=== PATIENT | female | born 1995 | race Caucasian/White ===

== ENCOUNTER 2016-11-27 03:20 | Emergency (ER) | payer OTHER ==
[~2016-11-27] VITALS: Ht 160 cm; Wt 97.5 kg
[2016-11-27] MEDS ORDERED: LIDOCAINE 1% INJ 20 ML (XYLOCAINE) VIAL INJ STA (03:39)
[2016-11-27] MEDS ORDERED: PARO30TA3 PO (03:42)
[2016-11-27] MEDS ORDERED: CYCL10TA9 PO (03:42)
[2016-11-27] MEDS ORDERED: BIRTH CONTROL PO (03:42)
[2016-11-27] MEDS ORDERED: OMEP20TA33 PO (03:42)
[2016-11-27] MEDS ORDERED: ALPR0.25 PO (03:42)
--- NOTE | 2016-11-27 03:46 | ED Fall/Injury ---
General Chief Complaint: Laceration Stated Complaint: RT HAND LAC,LEFT FOREARM LAC Source: patient, family Exam Limitations: intoxication History of Present Illness Time seen by provider: 03:26 Initial Comments Here with her and reports that she has lacerations to her right hand and left forearm as well as multiple abrasions and bruises to the arms and abrasions to the face after following up her steps going home after being at the bar. Apparently she was at the bar with her who is working there. He took her back to the house and dropped her off. She was apparently walking up her steps and fell. dropped her off at about 130 and went back to the bar to finish work. He came home about 230 and found her with blood on her arms and face. He is unsure what happened. She reported to him that she fell off the steps. He noted the laceration and brought her here. Patient apparently had a fair amount of blood on her and wanted to shower first. She did shower and then they came here to the ER. She reports that her tetanus is up-to-date. She denies any one trying to hurt her and states this was simply a fall. Occurred: this morning Severity: moderate Injuries/Pain Location: face, upper extremity Context: unknown Loss of Consciousness: no loss of consciousness Associated Symptoms (Fall): No Abdominal Pain, No Headache, No Nausea/Vomiting , No Neck Pain, No Trouble Walking Allergies and Home Medications Allergies Coded Allergies: amoxicillin (Verified Allergy, Unknown, NAUSEA, 11/27/16) Home Medications Unknown Dose PO UD (Reported) Alprazolam 0.25 Mg Tablet Unknown Dose PO UD (Reported) Cyclobenzaprine HCl 10 Mg Tablet #21 1 TAB PO UD (Reported) Omeprazole Magnesium 20 Mg Tablet.dr 20 MG PO UD (Reported) Paroxetine HCl 30 Mg Tablet #30 1 TAB PO UD (Reported) Constitutional: see HPINo chills, No fever Eyes: No Symptoms Reported Ears, Nose, Mouth, Throat: no symptoms reporteddenies mouth pain, denies loose teeth Respiratory: no symptoms reported Cardiovascular: no symptoms reported Gastrointestinal: no symptoms reportedNo nausea, No vomiting Genitourinary: no symptoms reported Musculoskeletal: no symptoms reported Skin: see HPI change in color lesions Psychiatric/Neurological: No Symptoms Reported All Other Systems Reviewed Negative Unless Noted: Yes Past Mwvztkz-Gvjktd-Zgjmqk Hx Patient Social History Alcohol Use: Occasionally Uses Recreational Drug Use: No Smoking Status: Never a Smoker Recent Foreign Travel: No Contact w/Someone Who Travel: No Surgeries HX Surgeries: No Respiratory Hx Respiratory Disorders: No Cardiovascular Hx Cardiac Disorders: No Neurological Hx Neurological Disorders: No Genitourinary Hx Genitourinary Disorders: No Gastrointestinal Hx Gastrointestinal Disorders: Yes Gastrointestinal Disorders: Gastroesophageal Reflux Musculoskeletal Hx Musculoskeletal Disorders: No Psychosocial Hx Psychiatric Problems: Yes Behavioral Health Disorders: Anxiety Reviewed Nursing Assessment Reviewed/Agree w Nursing PMH: Yes Family Medical History Significant Family History: No Pertinent Family Hx Physical Exam Vital Signs Vital Sign - Last 12Hours 11/27/16 03:42 Temp 97.2 Pulse 125 Resp 18 B/P 119/87 Pulse Ox 98 O2 Delivery Room Air Capillary Refill : General Appearance: WD/WN no apparent distress HEENT: PERRL/EOMI pharynx normal Neck: full range of motion supple Cardiovascular: regular rate, rhythm no murmur Respiratory: lungs clear normal breath sounds Gastrointestinal: non tender soft Back: normal inspection no CVA tenderness no vertebral tenderness Extremities: other (multiple abrasions to both forearms and hands. 4 cm laceration to the top of the right hand and 2 cm laceration to the mid left forearm. There is bruising to the mid forearms on both arms as well as to the hands. There are other scattered abrasions on the hands.) Neurologic/Psychiatric: alert oriented x 3 Skin: warm/dry ecchymosis other (abrasion to upper and lower lip midline as well as to the bridge of the nose.) [place] Coma Score Best Eye Response: (4) Open Spontaneously Best Verbal Response: (5) Oriented Best Motor Response: (6) Obeys Commands Laceration Repair #1: Wound Location: Upper Extremities Other Wound Location Right hand Wound Length (cm): 4 Wound's Depth, Shape: superficial Wound Explored: contaminated Irrigated w/ Saline (ccs): 125 Betadine Prep?: Yes Anesthesia: 1% Lidocaine Volume Anesthetic (ccs): 5 Wound Debrided: minimal Suture: Prolene Suture Size: 4-0 Number of Sutures: 6 Layer Closure?: 1 Number Deep Layer Sutures: 0 Progress Wound cleaning and copious water and soap. Anesthetized and closed. Tolerated procedure well. No complications. Covered with antibiotic ointment and a dressing Laceration Repair #2: Wound Location: Upper Extremities Other Wound Location Left forearm to lacerations and close proximity 2 cm total Wound Length (cm): 2 Wound's Depth, Shape: superficial Wound Explored: contaminated Irrigated w/ Saline (ccs): 125 Betadine Prep?: Yes Anesthesia: 1% Lidocaine Wound Debrided: minimal Suture: Prolene Suture Size: 4-0 Number of Sutures: 4 Layer Closure?: 1 Number Deep Layer Sutures: 0 Progress Wound cleaning and copious water and soap. Anesthetized and closed. Tolerated procedure well. No complications. Covered with antibiotic ointment and a dressing Progress/Results/Core Measures Results/Orders My Orders Orders-ANTHONY DHALIWAL MD Lidocaine 1% Injection (Xylocaine 1% Inj (11/27/16 03:39) Hand, Right, 3 Views (11/27/16 04:48) Vital Signs/I&O Vital Sign - Last 12Hours 11/27/16 11/27/16 03:42 03:49 Temp 97.2 97.2 Pulse 125 Resp 18 B/P 119/87 Pulse Ox 98 O2 Delivery Room Air Progress Note : Progress Note Seen and evaluated. Tetanus is up-to-date. Wounds cleaned with Hibiclens and saline. Laceration repair. Antibiotic ointment applied to abrasions. Discharged home with return precautions. Patient verbalize understanding instructions and agreement with plan. Departure Impression Impression: Primary Impression: Laceration of right hand without complication, excluding fingers Qualified Code: S61.411A - Laceration without foreign body of right hand, initial encounter Additional Impressions: Laceration of left forearm Qualified Code: S51.812A - Laceration without foreign body of left forearm, initial encounter Abrasion, multiple sites Contusion, multiple sites Disposition: 01 HOME, SELF-CARE Condition: Improved Departure-Patient Inst. Decision time for Depature: 03:48 Referrals: JOSE G BALDERRAMA MD (PCP) Primary Care Physician Patient Instructions: Contusion (DC), Laceration Repair With Stitches (DC), Skin Abrasions (DC) Add. Discharge Instructions: All discharge instructions reviewed with patient and/or family. Voiced understanding. Sutures out in 10 days. You may use antibiotic ointment and Band-Aid over sutured wounds daily for the next 5-6 days. Use antibiotic ointment over abrasions as needed. You may shower but do not soak in a bathtub or other body of water. Keep dressing clean and dry. Follow-up with your doctor for recheck as needed. Return for worse pain, fever, vomiting, weakness, red streaks up the hand or arm, foul-smelling drainage or other concerns as needed. Scripts Cephalexin 500 Mg [id number] Mg PO TID #15 TAB Prov:ANTHONY DHALIWAL MD 11/27/16 ANTHONY DHALIWAL MD Nov 27, 2016 03:46
[2016-11-27] MEDS ORDERED: CEPHALEXIN 250 MG (KEFLEX) CAP PO STA (05:06)
[2016-11-27] MEDS ORDERED: CEPH500T PO (05:06)
[2016-11-27 05:20] VITALS: BP 121/84
--- NOTE | 2016-11-27 06:37 | Diagnostic Imaging Report ---
INDICATION: Hand laceration. 3 views of the right hand show no fracture, dislocation, or other acute abnormalities. IMPRESSION: Negative right hand. Dictated by: Dictated on workstation # [id number]
== END 2016-11-27 05:18 | disposition home or self-care (01) ==
LOC: EDUNIT# 03:20 → ER 03:24
DX: S61.411A Laceration without foreign body of right hand, initial encounter (principal); S51.812A Laceration without foreign body of left forearm, initial encounter; S50.11XA Contusion of right forearm, initial encounter; S60.222A Contusion of left hand, initial encounter; S00.31XA Abrasion of nose, initial encounter; S00.511A Abrasion of lip, initial encounter; W10.9XXA Fall (on) (from) unspecified stairs and steps, initial encounter; Y92.009 Unspecified place in unspecified non-institutional (private) residence as the place of occurrence of the external cause; Y99.8 Other external cause status
CPT/HCPCS: 12002; 12042; 73130

== ENCOUNTER 2017-05-21 14:00 | Outpatient (CLI) | payer OTHER ==
[~2017-05-21] VITALS: Ht 160 cm; Wt 103.0 kg
[~2017-05-21 14:00] MED LIST: ALPR0.25 PO; BIRTH CONTROL PO; CEPH500T PO; CYCL10TA9 PO; OMEP20TA33 PO; PARO30TA3 PO
[2017-05-21] MEDS ORDERED: SERT50TA9 PO (14:57)
[2017-05-21] MEDS ORDERED: PANT40TA3 PO (14:57)
[2017-05-21] MEDS ORDERED: ALPR0.5T7 PO (14:57)
[2017-07-15] MEDS ORDERED: SUCR1TAB36 PO (08:47)
[2017-07-15] MEDS ORDERED: HYDR-3812 PO (09:55)
== END 2017-05-21 15:03 ==
LOC: PREOP 14:00
PROVIDERS: ATTEND Surgery
DX: Z01.818 Encounter for other preprocedural examination (principal); R10.13 Epigastric pain; R11.2 Nausea with vomiting, unspecified; R19.7 Diarrhea, unspecified

== ENCOUNTER 2017-05-25 10:34 | Day surgery (SDC) | payer OTHER ==
[~2017-05-25] VITALS: Ht 160 cm; Wt 103.0 kg
[2017-05-25 10:10] VITALS: BP 127/67
[~2017-05-25 10:34] MED LIST changes: +ALPR0.5T7 PO; +PANT40TA3 PO; +SERT50TA9 PO
[2017-05-25] MEDS ORDERED: LACTATED RINGERS 1,000 ML IV STA (10:44)
[2017-05-25] MEDS ORDERED: HURRICAINE EXT TUBE (BENZOCAINE) XX PRN (10:45)
[2017-05-25] MEDS ORDERED: LACTATED RINGERS 1,000 ML IV ONE (10:48)
[2017-05-25 11:10] VITALS: BP 128/92
--- NOTE | 2017-05-25 13:10 | Progress Note-Pre Operative ---
Pre-Operative Progress Note H&P Reviewed The H&P was reviewed, patient examined and no changes noted. Date Seen by Provider: May 25, 2017 Time Seen by Provider: 13:00 Date H&P Reviewed: May 25, 2017 Time H&P Reviewed: 13:00 Pre-Operative Diagnosis: Nausea, Vomiting, Epigastric pain, chronic diarrhea BOBBY GUAJARDO DO May 25, 2017 13:10
[2017-05-25] MEDS ORDERED: LACTATED RINGERS 1,000 ML IV PRN (13:15)
[2017-05-25] MEDS ORDERED: proPOfol 200 MG/20 ML (DIPRIVAN) VIAL IV ONE ×2 (13:21→13:29)
[2017-05-25] MEDS ORDERED: MIDAZOLAM 2 MG/2 ML (VERSED) VIAL ONE (13:23)
--- NOTE | 2017-05-25 13:56 | Progress Note-Post Operative ---
Post-Operative Progess Note Surgeon (s)/Crook Operator (s) Surgeon BOBBY GUAJARDO DO Crook Operator: na Pre-Operative Diagnosis Nausea, Vomiting, Epigastric pain, chronic diarrhea Post-Operative Diagnosis gastritis, normal colon Procedure & Operative Findings Date of Procedure 05/25/17 Procedure Performed/Findings egd c biopsies and colonoscopy c random cold biopsies Anesthesia Type per panel sewer Estimated Blood Loss Estimated blood loss (mL): none Specimens/Packing Specimens Removed antrum, body, random colon BOBBY GUAJARDO DO May 25, 2017 13:56
[2017-05-25] MEDS ORDERED: SUCR1TAB36 PO (13:57)
--- NOTE | 2017-05-25 13:58 | Discharge Inst-Simple/Standard ---
Discharge Inst-Standard Discharge Medications New, Converted or Re-Newed RX: Transmitted to Pharmacy Patient Instructions/Follow Up Plan of Care/Instructions/FU: 3 weeks Hector Activity as Tolerated: Yes Discharge Diet: Regular Diet BOBBY GUAJARDO DO May 25, 2017 13:58
[2017-05-25 14:10] VITALS: BP 122/74
[2017-05-25 14:40] VITALS: BP 127/77
[2017-05-25 14:45] VITALS: BP 127/77
--- NOTE | 2017-05-26 13:51 | OPERATIVE REPORT ---
DATE OF SERVICE: 05/25/2017 PREOPERATIVE DIAGNOSES: Nausea, vomiting, epigastric pain, chronic diarrhea. POSTOPERATIVE DIAGNOSIS: Gastritis, normal colon. PROCEDURE: EGD with biopsies and colonoscopy with random colon biopsies. ANESTHESIA: Per E COMMERCE ANALYST. SURGEON: Gerald Young DO SPECIMENS: Antrum, body, and random colon INDICATIONS: The patient is a 22-year-old female, who has been having nausea, vomiting, epigastric abdominal pain. She has had chronic diarrhea for approximately a year. She understands the risks and benefits of procedure and wished to proceed with procedure. Consent was signed, and on the chart. DESCRIPTION OF PROCEDURE: The patient was taken to the endoscopy suite, placed in left lateral recumbent position. Timeout was performed. Scope was inserted in mouth, down into esophagus, stomach and into the duodenum without difficulty. There were no polyps, masses or ulcerations within the duodenum. The scope was slowly retracted back into the stomach, which demonstrated erythematous changes more in the body. There were no polyps, mass or ulcerations. Biopsy of the antrum and biopsy of the body were obtained. Scope was retroflexed noting no other noted pathology. Scope was returned to its normal position, slowly withdrawn back into the distal esophagus. There were no polyps, masses, ulcerations or erythematous changes. Scope was slowly retracted back and completely removed. Digital rectal exam was performed. There were no palpable polyps, masses or ulcerations. Scope was inserted in the rectum and advanced to the cecum with minimal difficulty. Prep was adequate. Scope was then entered into the ileocecal valve and to the terminal ileum, which had normal appearance. The scope was then retracted back into the colon and into the cecum, where there were no polyps, masses or ulcerations. Scope was continuously retracted back noting no polyps, masses or ulcerations within the ascending, transverse, descending, sigmoid and rectum. As the scope was being retracted back, random cold biopsies were obtained. Once in the rectum, scope was also retroflexed noting no other pathology. Scope was returned to its normal position, slowly withdrawn until completely removed. The patient tolerated the procedure well without any complications and taken to recovery room in stable condition. RECOMMENDATIONS: The patient will be added Carafate 1 gram four times a day to her regimen. We will await biopsy results and have her follow up in approximately 3 weeks. If she has any worsening condition, she should be reevaluated at that time. The patient will need next colonoscopy per routine guidelines. If she has any problems prior to that, she should be reevaluated at that time. Job ID: [id number] DocumentID: [id number] Dictated Date: 05/25/2017 14:02:07 [employer] Teacher Date: 05/25/2017 20:31:21 Dictated By: DO TIKI LOZADA
[2017-07-15] MEDS ORDERED: SUCR1TAB36 PO (08:47)
[2017-07-15] MEDS ORDERED: HYDR-3812 PO (09:55)
== END 2017-05-25 14:45 | disposition home or self-care (01) ==
LOC: ENDO 10:34
PROVIDERS: ATTEND Surgery
DX: K29.70 Gastritis, unspecified, without bleeding (principal); K52.9 Noninfective gastroenteritis and colitis, unspecified; K21.9 Gastro-esophageal reflux disease without esophagitis; F32.9 Major depressive disorder, single episode, unspecified; F41.9 Anxiety disorder, unspecified
CPT/HCPCS: 84703; 88305

== ENCOUNTER → 2017-06-18 | Outpatient (CLI) | payer OTHER ==
[~2017-06-18] MED LIST changes: +SUCR1TAB36 PO
--- NOTE | 2017-06-18 19:40 | Diagnostic Imaging Report ---
PROCEDURE: US Gallbladder. TECHNIQUE: Multiple real-time grayscale images were obtained over the right upper quadrant in various projections. INDICATION: Abdominal pain. FINDINGS: The pancreas visualized portions appear unremarkable. Liver is fairly homogeneous with no focal lesion. Hepatopetal flow in the portal vein is seen. The gallbladder demonstrates no stones or wall thickening. No pericholecystic fluid. Sonographic Petty's sign is reportedly negative. The CBD is 5 mm in caliber. The right kidney is 11.3 cm in length with no hydronephrosis or focal lesion. No fluid collection is seen in the upper right abdomen. IMPRESSION: Unremarkable exam. Dictated by: Dictated on workstation # [id number]
== END ==
LOC: RAD 07:46
PROVIDERS: ATTEND Surgery
DX: R10.84 Generalized abdominal pain (principal)
CPT/HCPCS: 76705

== ENCOUNTER → 2017-06-25 | Outpatient (CLI) | payer OTHER ==
[~2017-06-25] MED LIST changes: +CATHETER FLUSH 10 ML SYR IV PRN
--- NOTE | 2017-06-25 13:35 | Diagnostic Imaging Report ---
INDICATION: Abdominal pain. COMPARISON: Gallbladder ultrasound of 06/18/2017. TECHNIQUE: Anterior scintigraphic imaging of the abdomen was performed after the intravenous administration of 5.42 mCi Tc-99m Choletec. FINDINGS: The upper abdomen was imaged for 120 minutes with the gamma camera. There is prompt homogeneous uptake of radiopharmaceutical by the liver. There is activity in the common duct and gallbladder by 20 minutes. Small bowel activity is seen by 60 minutes. After 45 minutes, 8 ounces of Ensure was administered. The gallbladder ejection fracture was calculated to be 95%, which is normal. IMPRESSION: 1. Patent common and cystic bile ducts. 2. No gallbladder dysfunction. Dictated by: Dictated on workstation # [id number]
== END ==
LOC: CARD 10:25
PROVIDERS: ATTEND Surgery
DX: R10.9 Unspecified abdominal pain (principal)
CPT/HCPCS: 78227

== ENCOUNTER 2017-07-04 12:45 | Emergency (ER) | payer OTHER ==
[~2017-07-04] VITALS: Ht 160 cm; Wt 103.0 kg
[~2017-07-04 12:45] MED LIST changes: -CATHETER FLUSH 10 ML SYR IV PRN
--- NOTE | 2017-07-04 13:14 | ED Abdominal Pain ---
General Chief Complaint: Abdominal/GI Problems Stated Complaint: R SIDE ABD PAIN/VOMITING/DIARRHEA Source of Information: Patient, Family Exam Limitations: No Limitations History of Present Illness Time Seen By Provider: 13:11 Initial Comments To ER accompanied by her mother with reports of right-sided abdominal pain associated with nausea and vomiting. She's had this pain for several months now but it became much worse at about 7 a.m. this morning. She has recently had outpatient gallbladder ultrasound and hepatobiliary scan this month. She states that they do not know the results of the hepatobiliary scan yet however. Currently she is very nauseated. She has had persistent diarrhea for several months as well. Timing/Duration: Getting Worse, Intermittent Severity/Quality: Cramping Location: RUQ, RLQ Radiation: Back Allergies and Home Medications Allergies Coded Allergies: azithromycin (Verified Allergy, Unknown, 05/21/17) Home Medications Alprazolam 0.5 Mg Tablet, 0.5 MG PO TID PRN for ANXIETY, (Reported) Dicyclomine HCl 10 Mg Capsule, 10 MG PO QID, #40 Prescribed by: REINALDO HINTON on 07/04/17 1516 Pantoprazole Sodium 40 Mg Tablet.dr, 40 MG PO DAILY, (Reported) Promethazine HCl 25 Mg Tablet, 25 MG PO Q8H PRN for NAUSEA/VOMITING, #10 Prescribed by: REINALDO HINTON on 07/04/17 1516 Sertraline HCl 50 Mg Tablet, 50 MG PO DAILY, (Reported) Sucralfate 1 Gm Tablet, 1 GM PO QID, #120 Prescribed by: BOBBY GUAJARDO on 05/25/17 1357 [ Control] , 1 TAB PO DAILY, (Reported) Review of Systems Constitutional: see HPI EENTM: No Symptoms Reported Respiratory: No Symptoms Reported Cardiovascular: No Symptoms Reported Gastrointestinal: See HPI, Abdominal Pain, Diarrhea, Nausea Genitourinary: No Symptoms Reported Musculoskeletal: no symptoms reported Skin: no symptoms reported Psychiatric/Neurological: No Symptoms Reported Endocrine: No Symptoms Reported Past Vguoroj-Uuyaza-Ruivrn Hx Patient Social History Alcohol Beverage of Choice: Beer 2nd Hand Smoke Exposure: No Recent Foreign Travel: No Contact w/Someone Who Travel: No Recent Hopitalizations: No Immunizations Up To Date Tetanus Booster (TDap): Less than 5yrs Seasonal Allergies Seasonal Allergies: Yes Cardiovascular Cardiac Disorders: Heart Murmur Reproductive System Hx Reproductive Disorders: No Gastrointestinal Gastrointestinal Disorders: Gastroesophageal Reflux, Chronic Diarrhea Psychosocial Behavioral Health Disorders: Anxiety, Depression Blood Transfusions Adverse Reaction to a Blood Tr: No Family Medical History Significant Family History: No Pertinent Family Hx Physical Exam Vital Signs VS - Last 72 Hours, by Label 07/04/17 13:46 Temp 98.2 Pulse 120 Resp 24 B/P (MAP) 135/93 Pulse Ox 98 Capillary Refill : General Appearance: WD/WN, no apparent distress HEENT: PERRL/EOMI, normal ENT inspection Neck: non-tender, full range of motion Respiratory: normal breath sounds, no respiratory distress, no accessory muscle use Cardiovascular: no murmur, tachycardia Gastrointestinal: normal bowel sounds, soft, tenderness Extremities: normal range of motion, non-tender Neurologic/Psychiatric: alert, normal mood/affect, oriented x 3 Skin: normal color, warm/dry Laceration Repair : Suture Size: 4-0 Progress/Results/Core Measures Results/Orders Lab Results Laboratory Tests Test 07/04/17 13:26 07/04/17 14:42 Range/Units White Blood Count 11.5 H 4.3-11.0 10^3/uL Red Blood Count 4.81 4.35-5.85 10^6/uL Hemoglobin 14.2 11.5-16.0 G/DL Hematocrit 43 35-52 % Mean Corpuscular Volume 89 80-99 FL Mean Corpuscular Hemoglobin 30 25-34 PG Mean Corpuscular Hemoglobin Concent 33 32-36 G/DL Red Cell Distribution Width 13.6 10.0-14.5 % Platelet Count 282 130-400 10^3/uL Mean Platelet Volume 11.6 H 7.4-10.4 FL Neutrophils (%) (Auto) 91 H 42-75 % Lymphocytes (%) (Auto) 6 L 12-44 % Monocytes (%) (Auto) 3 0-12 % Eosinophils (%) (Auto) 0 0-10 % Basophils (%) (Auto) 0 0-10 % Neutrophils # (Auto) 10.5 H 1.8-7.8 X 10^3 Lymphocytes # (Auto) 0.7 L 1.0-4.0 X 10^3 Monocytes # (Auto) 0.3 0.0-1.0 X 10^3 Eosinophils # (Auto) 0.0 0.0-0.3 10^3/uL Basophils # (Auto) 0.0 0.0-0.1 10^3/uL Neutrophils % (Manual) 89 % Lymphocytes % (Manual) 9 % Monocytes % (Manual) 2 % Clumped Platelets Blood Morphology Comment NORMAL Erythrocyte Sedimentation Rate 11 0-20 MM/HR Sodium Level 139 135-145 MMOL/L Potassium Level 4.3 3.6-5.0 MMOL/L Chloride Level 108 H 98-107 MMOL/L Carbon Dioxide Level 18 L 21-32 MMOL/L Anion Gap 13 5-14 MMOL/L Blood Urea Nitrogen 8 7-18 MG/DL Creatinine 0.79 0.60-1.30 MG/DL Estimat Glomerular Filtration Rate > 60 BUN/Creatinine Ratio 10 Glucose Level 109 H 70-105 MG/DL Calcium Level 9.8 8.5-10.1 MG/DL Total Bilirubin 0.4 0.1-1.0 MG/DL Aspartate Amino Transf (AST/SGOT) 18 5-34 U/L Alanine Aminotransferase (ALT/SGPT) 17 0-55 U/L Alkaline Phosphatase 65 40-136 U/L C-Reactive Protein High Sensitivity 1.72 H 0.00-0.50 MG/DL Total Protein 8.4 H 6.4-8.2 GM/DL Albumin 4.5 3.2-4.5 GM/DL Serum Test, Qualitative NEGATIVE NEGATIVE Urine Color YELLOW Urine Clarity CLEAR Urine pH 6.5 5-9 Urine Specific [place] 1.005 L 1.016-1.022 Urine Protein NEGATIVE NEGATIVE Urine Glucose (UA) NEGATIVE NEGATIVE Urine Ketones NEGATIVE NEGATIVE Urine Nitrite NEGATIVE NEGATIVE Urine Bilirubin NEGATIVE NEGATIVE Urine Urobilinogen NORMAL NORMAL MG/DL Urine Leukocyte Esterase 1+ H NEGATIVE Urine RBC (Auto) NEGATIVE NEGATIVE Urine RBC NONE /HPF Urine WBC NONE /HPF Urine Squamous Epithelial Cells 5-10 /HPF Urine Crystals NONE /LPF Urine Bacteria NEGATIVE /HPF Urine Casts NONE /LPF Urine Mucus NEGATIVE /LPF Urine Culture Indicated NO My Orders Orders - REINALDO HINTON APRN Cbc With Automated Diff (07/04/17 12:51) Comprehensive Metabolic Panel (07/04/17 12:51) Ua Culture If Indicated (07/04/17 12:51) Urine Bedside (07/04/17 12:51) Saline Lock/Iv-Start (07/04/17 12:51) Erythrocyte Sedimentation Rate (07/04/17 13:05) Hs C Reactive Protein (07/04/17 13:05) Lactated Ringers (Lr 1000 Ml Iv Solution (07/04/17 13:15) Ondansetron Injection (Zofran Injectio (07/04/17 13:15) Fentanyl Injection (Sublimaze Injection (07/04/17 13:15) Ct Abd/Pelv W (Appendicitis) (07/04/17 13:36) Iohexol Injection (Omnipaque 350 Mg/Ml 1 (07/04/17 13:45) Ns (Ivpb) (Sodium Chloride 0.9% Ivpb Bag (07/04/17 13:45) Hcg,Qualitative Serum (07/04/17 13:49) Manual Differential (07/04/17 13:26) Lactated Ringers (Lr 1000 Ml Iv Solution (07/04/17 14:15) Promethazine Injection (Phenergan Injec (07/04/17 14:15) Medications Given in ED Current Medications Medications Dose Ordered Sig/Adali Route Start Time Stop Time Status Last Admin Dose Admin Fentanyl Citrate 75 mcg ONCE ONCE IVP 07/04/17 13:15 07/04/17 13:16 DC 07/04/17 13:23 75 MCG Iohexol 100 ml ONCE ONCE IV 07/04/17 13:45 07/04/17 13:47 DC 07/04/17 14:14 100 ML Ondansetron HCl 8 mg ONCE ONCE IVP 07/04/17 13:15 07/04/17 13:16 DC 07/04/17 13:23 8 MG Promethazine HCl 25 mg ONCE ONCE IVP 07/04/17 14:15 07/04/17 14:16 DC 07/04/17 14:48 25 MG Sodium Chloride 100 ml ONCE ONCE IV 07/04/17 13:45 07/04/17 13:47 DC 07/04/17 14:14 80 ML Vital Signs/I&O Vital Sign - Last 12Hours 07/04/17 13:46 Temp 98.2 Pulse 120 Resp 24 B/P (MAP) 135/93 Pulse Ox 98 Diagnostic Imaging Diagonstic Imaging: CT Comments NAME: SLAVA DACOSTA [facility] REC#: [id number] PT STATUS: REG ER : 1995 PHYSICIAN: REINALDO HINTON APRN ADMIT DATE: 07/04/17/ER Draft Date of Exam:07/04/17 CT ABD/PELV W (APPENDICITIS) PROCEDURE: CT abdomen and pelvis with contrast, rule out appendicitis. TECHNIQUE: Multiple contiguous axial images were obtained through the abdomen and pelvis after the administration of intravenous contrast. INDICATION: Abdominal pain. Evaluate for appendicitis. COMPARISON: None. FINDINGS: The lung bases are clear. The liver is incompletely visualized. Visualized portions appear unremarkable. The gallbladder appears unremarkable. There is no biliary dilatation. The pancreas, spleen and adrenal glands appear unremarkable. The kidneys appear unremarkable. The appendix is identified and appears normal. There is some prominence of the right adnexa with possible right ovarian cyst, not well demonstrated. It is difficult to separate from adjacent nonopacified small bowel. There is mild thickening of the small bowel wall with diffuse intraluminal fluid possibly related to an enteritis. There is no free fluid, free air or adenopathy demonstrated. Abdominal aorta appears normal in caliber. No acute osseous abnormality is seen. IMPRESSION: 1. Mild diffuse thickening of small bowel with intraluminal fluid, possibly related to an enteritis. Correlate clinically. 2. Mild prominence of the right adnexa, cannot exclude right ovarian cyst or lesion. If clinically warranted, pelvic ultrasound may be of additional benefit. 3. The appendix is visualized and appears normal. Dictated on workstation # [id number] Dict: 07/04/17 1454 Trans: 07/04/17 1507 [facility] [id number] Interpreted by: HARRISON ANNE DO Electronically signed by: Departure Communication (Admissions) Progress Notes minimal improvement after fentanyl and zofran. 2nd liter of LR given plus 25mg of phenergan. Impression Impression: Primary Impression: Nausea vomiting and diarrhea Additional Impression: Abdominal pain Disposition: 01 HOME, SELF-CARE Condition: Stable Departure-Patient Inst. Decision time for Depature: 15:14 Referrals: JOSE G BALDERRAMA MD (PCP/Family) Primary Care Physician Patient Instructions: Nausea and Vomiting, Adult Add. Discharge Instructions: 1. clear liquids only for the next 12 hours 2. follow up with your doctor this week for recheck 3. All discharge instructions reviewed with patient and/or family. Voiced understanding. Scripts Promethazine HCl (Promethazine Tablet) 25 Mg Tablet 25 MG PO Q8H Y for NAUSEA/VOMITING, #10 TAB Prov: REINALDO HINTON APRN 07/04/17 Dicyclomine HCl (Bentyl) 10 Mg Capsule 10 MG PO QID, #40 CAP Prov: REINALDO HINTON APRN 07/04/17 Work/School Note: Work Release Form Date Seen in the Emergency Department: Jul 04, 2017 Return to Work: Jul 06, 2017 Copy Copies To 1: JOSE G BALDERRAMA MD, PETER J APRN Jul 04, 2017 13:13
[2017-07-04] MEDS ORDERED: ONDANSETRON 4 MG/2 ML (SDV) Z0FRAN IVP ONE (13:15)
[2017-07-04] MEDS ORDERED: fentaNYL INJECTION 100 MCG/2 ML AMP IVP ONE (13:15)
[2017-07-04] MEDS ORDERED: LACTATED RINGERS 1,000 ML IV SCH ×2 (13:15→14:15)
[2017-07-04 13:44] LABS: BASOPHILS % (AUTO) 0 % (0-10); EOSINOPHILS % (AUTO) 0 % (0-10); LYMPHOCYTES # (AUTO) 0.7 X 10^3 (1.0-4.0); LYMPHOCYTES % (AUTO) 6 % (12-44); MEAN CORPUSCULAR HEMOGLOBIN 30 PG (25-34); MEAN CORPUSCULAR HGB CONC 33 G/DL (32-36); MEAN CORPUSCULAR VOLUME 89 FL (80-99); MEAN PLATELET VOLUME 11.6 FL (7.4-10.4); MONOCYTES # (AUTO) 0.3 X 10^3 (0.0-1.0); MONOCYTES % (AUTO) 3 % (0-12); NEUTROPHILS # (AUTO) 10.5 X 10^3 (1.8-7.8); NEUTROPHILS % (AUTO) 91 % (42-75); PLATELET COUNT 282 10^3/uL (130-400); RED BLOOD COUNT 4.81 10^6/uL (4.35-5.85); RED CELL DISTRIBUTION WIDTH 13.6 % (10.0-14.5); WHITE BLOOD COUNT 11.5 10^3/uL (4.3-11.0)
[2017-07-04] MEDS ORDERED: IOHEXOL 350 MG/ML 100 ML (OMNIPAQUE 350) VIAL IV ONE (13:45)
[2017-07-04] MEDS ORDERED: NS 100 ML (IVPB) BAG IV ONE (13:45)
[2017-07-04 14:03] LABS: ALANINE AMINOTRANSFERASE 17 U/L (0-55); ALBUMIN 4.5 GM/DL (3.2-4.5); ANION GAP 13 MMOL/L (5-14); ASPARTATE AMINO TRANSFERASE 18 U/L (5-34); BILIRUBIN,TOTAL 0.4 MG/DL (0.1-1.0); BLOOD UREA NITROGEN 8 MG/DL (7-18); BUN/CREATININE RATIO 10; CALCIUM 9.8 MG/DL (8.5-10.1); CARBON DIOXIDE 18 MMOL/L (21-32); CHLORIDE 108 MMOL/L (98-107); CREATININE SERUM 0.79 MG/DL (0.60-1.30); GFR ESTIMATED > 60; GLUCOSE 109 MG/DL (70-105); POTASSIUM 4.3 MMOL/L (3.6-5.0); SODIUM 139 MMOL/L (135-145); TOTAL PROTEIN 8.4 GM/DL (6.4-8.2); hs C REACTIVE PROTEIN 1.72 MG/DL (0.00-0.50)
[2017-07-04 14:11] LABS: ERYTHROCYTE SEDIMENTATION RATE 11 MM/HR (0-20); LYMPHOCYTES % (MANUAL) 9 %; NEUTROPHILS % (MANUAL) 89 %
[2017-07-04] MEDS ORDERED: PROMETHAZINE INJ 25 MG/ML (PHENERGAN) AMP IVP ONE (14:15)
[2017-07-04 14:51] LABS: BILIRUBIN,URINE NEGATIVE (NEGATIVE); KETONES,URINE NEGATIVE (NEGATIVE); LEUKOCYTE ESTERASE ,URINE 1+ (NEGATIVE); NITRITE,URINE NEGATIVE (NEGATIVE); PH,URINE 6.5 (5-9); PROTEIN,URINE NEGATIVE (NEGATIVE); UROBILINOGEN,URINE NORMAL (NORMAL)
--- NOTE | 2017-07-04 15:07 | Diagnostic Imaging Report ---
PROCEDURE: CT abdomen and pelvis with contrast, rule out appendicitis. TECHNIQUE: Multiple contiguous axial images were obtained through the abdomen and pelvis after the administration of intravenous contrast. INDICATION: Abdominal pain. Evaluate for appendicitis. COMPARISON: None. FINDINGS: The lung bases are clear. The liver is incompletely visualized. Visualized portions appear unremarkable. The gallbladder appears unremarkable. There is no biliary dilatation. The pancreas, spleen and adrenal glands appear unremarkable. The kidneys appear unremarkable. The appendix is identified and appears normal. There is some prominence of the right adnexa with possible right ovarian cyst, not well demonstrated. It is difficult to separate from adjacent nonopacified small bowel. There is mild thickening of the small bowel wall with diffuse intraluminal fluid possibly related to an enteritis. There is no free fluid, free air or adenopathy demonstrated. Abdominal aorta appears normal in caliber. No acute osseous abnormality is seen. IMPRESSION: 1. Mild diffuse thickening of small bowel with intraluminal fluid, possibly related to an enteritis. Correlate clinically. 2. Mild prominence of the right adnexa, cannot exclude right ovarian cyst or lesion. If clinically warranted, pelvic ultrasound may be of additional benefit. 3. The appendix is visualized and appears normal. Dictated by: Dictated on workstation # [id number]
[2017-07-04] MEDS ORDERED: PROM25TA14 PO (15:16)
[2017-07-04] MEDS ORDERED: DICY10CA59 PO (15:16)
[2017-07-04 16:05] VITALS: BP 123/84
== END 2017-07-04 16:05 | disposition home or self-care (01) ==
LOC: EDUNIT# 12:45 → ER 12:46
DX: R11.2 Nausea with vomiting, unspecified (principal); R19.7 Diarrhea, unspecified; R10.11 Right upper quadrant pain; R10.31 Right lower quadrant pain; K21.9 Gastro-esophageal reflux disease without esophagitis; F41.9 Anxiety disorder, unspecified; F32.9 Major depressive disorder, single episode, unspecified
CPT/HCPCS: 36415; 74177; 80053; 81000; 84703; 85007; 85027; 85652; 86141; 96361; 96374; 96375

== ENCOUNTER 2018-03-01 08:04 | Outpatient (RCR) | payer OTHER ==
[~2018-03-01 08:04] MED LIST changes: +ACHD5005 PO; +DICY10CA59 PO; +PROM25TA14 PO
== END 2018-05-30 | disposition home or self-care (01) ==
LOC: CARD 08:04
PROVIDERS: ATTEND Nurse Practitioner Family
DX: R00.2 Palpitations (principal)
CPT/HCPCS: 93225; 93226

== ENCOUNTER → 2018-04-14 | Outpatient (CLI) | payer OTHER ==
[~2018-04-14] VITALS: Ht 162.6 cm; Wt 99.8 kg
[2018-04-14] VITALS (33 sets, daily range): BP systolic 113–146; BP diastolic 74–102
[~2018-04-14] MED LIST changes: +ATROPINE INJECTION 1 MG/10 ML SYR (ABBOTT) ONE; +NITROGLYCERIN 0.4 MG SL TABS BTL 25'S SL ONE; +NS IV 1000 ML 1,000 ML IV ONE; +NS IV 1000 ML 1,000 ML ONE
--- NOTE | 2018-04-14 18:14 | Cardiology Tilt Table Test ---
Cardiology-Tilt Table Test Tilt Table Test Date 04/14/18 Baseline Vitals Vital Signs Date Time Temp Pulse Resp B/P (MAP) Pulse Ox O2 Delivery O2 Flow Rate FiO2 04/14/18 13:23 85 18 137/83 (101) 100 Room Air Vital Signs VS - Last 72 Hours, by Label 04/14/18 04/14/18 04/14/18 04/14/18 13:23 13:31 13:32 13:33 Pulse 85 74 80 70 Resp 18 18 18 18 B/P (MAP) 137/83 (101) 130/82 (98) 135/87 (103) 125/86 (99) Pulse Ox 100 100 100 100 O2 Delivery Room Air Room Air Room Air Room Air 04/14/18 04/14/18 04/14/18 04/14/18 13:34 13:35 13:36 13:37 Pulse 71 85 73 81 Resp 18 18 18 18 B/P (MAP) 126/82 (97) 130/84 (99) 121/82 (95) 122/77 (92) Pulse Ox 100 100 99 99 O2 Delivery Room Air Room Air Room Air Room Air 04/14/18 04/14/18 04/14/18 04/14/18 13:38 13:39 13:40 13:43 Pulse 80 76 73 83 Resp 18 18 18 18 B/P (MAP) 125/82 (96) 116/83 (94) 125/74 (91) 146/80 (102) Pulse Ox 99 99 99 99 O2 Delivery Room Air Room Air Room Air Room Air 04/14/18 04/14/18 04/14/18 04/14/18 13:44 13:45 13:46 13:47 Pulse 83 77 79 81 Resp 18 18 18 18 B/P (MAP) 131/84 (100) 130/79 (96) 124/83 (97) 121/78 (92) Pulse Ox 99 99 99 99 O2 Delivery Room Air Room Air Room Air Room Air 04/14/18 04/14/18 04/14/18 04/14/18 13:48 13:49 13:50 13:51 Pulse 97 81 87 73 Resp 18 18 18 18 B/P (MAP) 130/92 (105) 125/86 (99) 124/83 (97) 125/83 (97) Pulse Ox 100 99 100 99 O2 Delivery Room Air Room Air Room Air Room Air 04/14/18 04/14/18 04/14/18 04/14/18 13:52 13:53 13:54 13:55 Pulse 83 82 76 78 Resp 18 18 18 18 B/P (MAP) 123/102 (109) 120/80 (93) 116/75 (89) 113/87 (96) Pulse Ox 99 97 98 99 O2 Delivery Room Air Room Air Room Air Room Air 04/14/18 04/14/18 04/14/18 04/14/18 13:56 13:57 13:58 13:59 Pulse 82 80 83 79 Resp 18 18 18 18 B/P (MAP) 123/75 (91) 125/79 (94) 116/74 (88) 121/89 (100) Pulse Ox 99 97 97 98 O2 Delivery Room Air Room Air Room Air Room Air 04/14/18 04/14/18 04/14/18 04/14/18 14:00 14:01 14:02 14:03 Pulse 79 83 78 89 Resp 18 18 18 18 B/P (MAP) 120/85 (97) 119/75 (90) 119/82 (94) 127/84 (98) Pulse Ox 99 99 99 99 O2 Delivery Room Air Room Air Room Air Room Air 04/14/18 14:04 Pulse 91 Resp 18 B/P (MAP) 115/101 (106) Pulse Ox 99 O2 Delivery Room Air Patient was tilted to 75 degrees for [10] minutes, then returned to supine position, given [1] sublingual nitroglycerin tablets, then tilted again to 75 degrees for [15] minutes. During test, patient was: asymptomatic In Conclusion;: Negative Tilt Table Test No symptoms, no significant blood pressure reduction noted. Negative tilt table testing. Davis ZHONG MD Apr 14, 2018 6:13 pm
== END ==
LOC: CARD 12:44
PROVIDERS: ATTEND Internal Medicine Interventional Cardiology
DX: R55 Syncope and collapse (principal); R00.0 Tachycardia, unspecified; R06.02 Shortness of breath; R00.2 Palpitations; F17.210 Nicotine dependence, cigarettes, uncomplicated; I10 Essential (primary) hypertension
CPT/HCPCS: 93660

== ENCOUNTER 2018-05-05 07:41 | Outpatient (RCR) | payer OTHER ==
[~2018-05-05 07:41] MED LIST changes: -ATROPINE INJECTION 1 MG/10 ML SYR (ABBOTT) ONE; -NITROGLYCERIN 0.4 MG SL TABS BTL 25'S SL ONE; -NS IV 1000 ML 1,000 ML IV ONE; -NS IV 1000 ML 1,000 ML ONE
== END 2018-07-10 | disposition home or self-care (01) ==
LOC: CARD 07:41
PROVIDERS: ATTEND Internal Medicine Interventional Cardiology
DX: R55 Syncope and collapse (principal); R00.0 Tachycardia, unspecified; R06.02 Shortness of breath; R00.2 Palpitations; I08.1 Rheumatic disorders of both mitral and tricuspid valves
CPT/HCPCS: 93270; 93306

== ENCOUNTER → 2018-05-26 | Day surgery (SDC) | payer OTHER ==
[~2018-05-26] VITALS: Ht 162.6 cm; Wt 97.5 kg
[~2018-05-26] MED LIST changes: +LIDOCAINE 1% INJ 20 ML 20 ML VIAL INJ ONE; +LIDOCAINE 1% INJ 20 ML 20 ML VIAL ONE
[2018-05-26 09:03] VITALS: BP 131/97
--- NOTE | 2018-05-26 10:13 | Implantation of Loop Monitor ---
Implant of Loop Monitior PROCEDURE PHYSICIAN: Horacio Chaves MD IMPLANTATION OF LOOP MONITOR REPORT DATE OF PROCEDURE: 05/26/18 ATTENDING PHYSICIAN: Dr. Ty Chaves. REFERRING PHYSICIAN: PERFORMING PHYSICIAN: Dr. Ty Chaves. INDICATION: Recurrent syncope. PREOP DIAGNOSIS: Recurrent syncope. POSTOP DIAGNOSIS: s/p implantation of loop recorder. PROCEDURE DETAILS: The patient is a 23 female with history of recurrent syncope. Therefore implantable loop recorder was discussed and agreed with the patient. Informed consent was taken. All risks and complications were discussed at length. The patient was draped and prepped in the usual sterile fashion. Local anesthesia was lidocaine, which was given in the substernal area close to the 4th intercostal space. Loop monitor was implanted according to the protocol. Steri- Strips were placed at the end of the procedure. There were no complications and the patient tolerated the procedure well. ANESTHESIA: Local anesthesia with lidocaine. COMPLICATIONS: None CONTRAST/FLUOROSCOPY: None CONCLUSION: 1. Successful implantation of loop monitor for recurrent syncope. 2. No complication and the patient tolerated the procedure well. Horacio Chaves MD, [facility], CCDS Cardiac Electrophysiology Davis CHAVES MD May 26, 2018 10:13
[2018-05-26 16:13] VITALS: BP 124/79
== END ==
LOC: CATH 08:39
PROVIDERS: ATTEND Internal Medicine Interventional Cardiology
DX: R55 Syncope and collapse (principal); R00.0 Tachycardia, unspecified; I10 Essential (primary) hypertension; F17.210 Nicotine dependence, cigarettes, uncomplicated; E66.9 Obesity, unspecified; Z68.36 Body mass index [BMI] 36.0-36.9, adult
CPT/HCPCS: 33282

== ENCOUNTER → 2021-05-21 | Outpatient (CLI) | payer OTHER ==
[~2021-05-21] MED LIST changes: -LIDOCAINE 1% INJ 20 ML 20 ML VIAL INJ ONE; -LIDOCAINE 1% INJ 20 ML 20 ML VIAL ONE; -PANT40TA3 PO; +PANT40TA52 PO; +SERT-413 PO; -SERT50TA9 PO
--- NOTE | 2021-05-21 17:18 | Diagnostic Imaging Report ---
INDICATION: Palpable lump in left breast for several weeks. EXAMINATION: Sonographic interrogation of the upper and outer aspect of the left breast was performed. FINDINGS: There is an area of ill-defined hypoechogenicity at the 3:00 location of the left breast measuring 3.0 x 2.4 x 3.2 cm. This shows vascularity along the margins but no definite internal vascularity. There are slightly prominent ducts in the retroareolar left breast. Left axilla contains two fatty lymph nodes, largest 2.3 x 0.8 cm. IMPRESSION: Irregular hypoechoic masslike region at the 3:00 location of the left breast corresponding to the palpable abnormality. In a patient this age, an inflammatory process such as breast abscess would be the leading consideration. A breast neoplasm is an additional consideration but less likely. Discussion was made with the patient for undergoing a round of antibiotics with a repeat left breast ultrasound in approximately 4 weeks. Patient elected to undergo ultrasound-guided breast biopsy. Diagnostic mammogram is recommended and will be performed today as well. ACR BI-RADS Category 0: Incomplete. (Needs additional imaging evaluation). Result letter will be mailed to the patient. Note: At least 10% of breast cancer is not imaged by mammography. Dictated by: Dictated on workstation # [id number]
--- NOTE | 2021-05-21 17:31 | Diagnostic Imaging Report ---
INDICATION: Palpable lump in left breast and abnormal ultrasound. COMPARISON: No prior studies are available for comparison. 2D and 3D bilateral diagnostic mammography was performed. Scattered fibroglandular densities are noted, bilaterally. There is a masslike density at the area of palpable abnormality in the upper outer aspect of the left breast anterior depth. This corresponds to the ultrasound abnormality as well. Right breast does show a cluster of circumscribed nodules in the upper outer right breast, likely a cluster of cysts. No malignant-appearing microcalcifications are seen. Axillae are unremarkable. IMPRESSION: Masslike density in the upper and outer left breast corresponding to the palpable and ultrasound abnormality. Patient has elected to undergo breast biopsy. Further evaluation with ultrasound-guided biopsy of the left breast density has been scheduled for next week. ACR BI-RADS Category 4: Suspicious abnormality. Result letter will be mailed to the patient. Note: At least 10% of breast cancer is not imaged by mammography. Dictated by: Dictated on workstation # [id number]
== END ==
LOC: RAD 14:09
PROVIDERS: ATTEND Nurse Practitioner Family
DX: N63.21 Unspecified lump in the left breast, upper outer quadrant (principal)
CPT/HCPCS: 76642; 77066; G0279; 77062

== ENCOUNTER → 2021-05-27 | Outpatient (CLI) | payer OTHER ==
[~2021-05-27] VITALS: Ht 160 cm; Wt 102.3 kg
[~2021-05-27] MED LIST changes: +LIDOCAINE 1% INJ 20 ML 20 ML VIAL INJ ONE
--- NOTE | 2021-05-27 10:56 | Diagnostic Imaging Report ---
INDICATION: Left breast mass. Patient presents for ultrasound guided biopsy. DETAILS OF THE PROCEDURE: The patient was brought to the sonographic suite and placed on the table in the supine position. Ultrasound imaging of the left breast was performed to evaluate for an appropriate entry site. There is a large area of irregular mixed echogenicity at the 3 o'clock location of the left breast 2-3 cm from the nipple. This appears to represent a complex fluid collection such as a breast abscess; therefore, the decision was made to attempt an aspiration. The left breast was prepped and draped in the usual sterile fashion. A small amount of 1% lidocaine was utilized for local anesthesia. 18-gauge and 20-gauge spinal needles were advanced into the complex fluid collection in the left breast. A total of approximately 20 cc of red-tinged purulent fluid was aspirated. This will be sent to the Lab for culture as well as cytologic evaluation. The needle was removed and hemostasis was obtained using manual compression. The patient tolerated the procedure well. Followup imaging does show a significant reduction in size of the complex collection in the left breast, now measuring approximately 3.7 x 1.3 cm. IMPRESSION: Ultrasound-guided left breast aspiration obtaining purulent fluid. The fluid will be sent for cytology as well as culture and sensitivity. Dictated by: Dictated on workstation # [id number]
== END ==
LOC: RAD 09:00
PROVIDERS: ATTEND Nurse Practitioner Family
DX: N63.20 Unspecified lump in the left breast, unspecified quadrant (principal)
CPT/HCPCS: 76942; 87070; 87075; 87205

== ENCOUNTER → 2021-06-17 | Outpatient (CLI) | payer OTHER ==
[~2021-06-17] MED LIST changes: -LIDOCAINE 1% INJ 20 ML 20 ML VIAL INJ ONE
--- NOTE | 2021-06-17 20:17 | Diagnostic Imaging Report ---
INDICATION: Left breast abscess. The study is performed for follow-up. CORRELATION is made with prior left breast ultrasound from 05/21/2021 and postprocedure ultrasound from 05/27/2021. There continues to be a complex fluid collection at the 3:00 location of the left breast, 2 to 3 cm from the nipple, measuring 3.3 x 2.5 x 1.6 cm. This is similar in size to the collection post procedure on 05/27/2021. No internal vascularity is present. IMPRESSION: Continued residual complex fluid collection at the 3:00 location left breast, 2 to 3 cm from the nipple, consistent with residual breast abscess. Overall size of this is similar to the size post-aspiration on 05/27/2021. Continued sonographic follow-up in 4-6 weeks is recommended. BI-RADS Category 3 ACR BI-RADS Category 3: Probably benign findings. Result letter will be mailed to the patient. Note: At least 10% of breast cancer is not imaged by mammography. Dictated by: Dictated on workstation # [id number]
== END ==
LOC: RAD 13:00
PROVIDERS: ATTEND Nurse Practitioner Family
DX: N61.1 Abscess of the breast and nipple (principal)
CPT/HCPCS: 76642

== ENCOUNTER → 2021-07-10 | Outpatient (CLI) | payer OTHER ==
--- NOTE | 2021-07-10 09:51 | Diagnostic Imaging Report ---
EXAMINATION: Ultrasound left breast limited. INDICATION: Breast abscess. FINDINGS: The previous left breast ultrasound exam performed on 06/17/2021 noted a 3.3 x 2.5 x 1.6 cm complex fluid collection in the 3 o'clock position of the left breast. This was felt to be related to an abscess. In the interval since the prior exam, that abnormal fluid collection has diminished in size. It now measures 2.3 x 1.6 x 0.7 cm. This finding does not seem as complicated as on the prior exam as the area in question is primarily hypoechoic with only a few internal echoes. No other abnormality is identified. IMPRESSION: The suspected breast abscess seen previously has decreased in size. Clinical followup is recommended. ACR BI-RADS Category 1: Negative. Dictated by: Dictated on workstation # [id number]
== END ==
LOC: RAD 09:00
PROVIDERS: ATTEND Surgery
DX: N63.20 Unspecified lump in the left breast, unspecified quadrant (principal)
CPT/HCPCS: 76642

== ENCOUNTER → 2023-07-05 | Outpatient (CLI) | payer OTHER ==
[~2023-07-05] MED LIST changes: +CYCL10TA25 PO; -CYCL10TA9 PO
--- NOTE | 2023-07-05 12:14 | Diagnostic Imaging Report ---
INDICATION: Anatomy scan. TECHNIQUE: Multiple real-time grayscale images were obtained over the gravid uterus. COMPARISON: None FINDINGS: There is a single live fetus in a cephalic presentation. heart rate was recorded 155 bpm. Placenta is posterior. No previa is detected. Amniotic fluid index is 9.4 cm. kidneys, bladder and stomach are unremarkable. brain is unremarkable. There is a four-chamber heart. There is a three-vessel cord with normal insertion. spine is unremarkable. Biometrical measurements are as follows: Biparietal 4.64 cm, age 20 weeks 1 days. Head circumference 17.47 cm, age 20 weeks 0 days. Abdominal circumference 13.75 cm, age 19 weeks 2 days. Femur length 3.24 cm, age 20 weeks 1 days. Sonographic estimate age: 20 weeks 0 days. Sonographic estimated date of delivery: 11/22/2023. Estimated Weight: 306 gm (+/- 45 gm). LMP percentile: 42%. heart rate: 155 beats per minute. number: 1 of 1. IMPRESSION: Single live IUP 20 weeks 0 days gestational age. Estimated date of confinement sonographically is 11/22/2023. No complicating features are detected. Dictated by: Dictated on workstation # [id number]
== END ==
LOC: RAD 10:00
PROVIDERS: ATTEND Nurse Practitioner Women's Health
DX: Z34.02 Encounter for supervision of normal first pregnancy, second trimester (principal); Z3A.20 20 weeks gestation of pregnancy
CPT/HCPCS: 76805